=== PATIENT | male | born 1980 | race African-American/Black ===

== ENCOUNTER 2017-01-05 15:57 | Emergency (ER) | payer SELFPAY ==
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
[2017-01-05] MEDS ORDERED: SODIUM CHLORIDE 0.9% 1,000 ML IV STA (16:40)
[2017-01-05] MEDS ORDERED: ONDANSETRON 4 MG/2 ML VIAL IVP STA (16:40)
[2017-01-05] MEDS ORDERED: PANTOPRAZOLE 40 MG/10 ML VIAL IVP STA (16:44)
[2017-01-05] MEDS ORDERED: LORazepam 2 MG/ML SYRINGE IV STA (16:44)
[2017-01-05 16:54] LABS: Basophils % (A) 1 %; CH 30.5; CHCM 35.3; Eosinophils # (A) 0.3 k/uL (0-0.7); Eosinophils % (A) 5 %; HCT 41.9 % (39.0-53.0); HDW 2.83; HGB 14.4 gm/dL (13.0-17.5); Luc # (Auto) 0.26; Luc % (Auto) 4; Lymphocytes # (A) 3.7 k/uL (1.0-4.8); Lymphocytes % (A) 50 %; MCH 29.8 pg (25.0-35.0); MCHC 34.4 g/dL (31.0-37.0); MCV 86.8 fL (80.0-100.0); Monocytes # (A) 0.6 k/uL (0-1.0); Monocytes % (A) 8 %; Neutrophils # (A) 2.4 k/uL (1.3-7.7); Neutrophils % (A) 33 %; RBC 4.83 m/uL (4.30-5.90); RDW 13.2 % (11.5-15.5); WBC 7.3 k/uL (3.8-10.6); WBC (Perox) 6.94
[2017-01-05 17:05] LABS: ALT 33 U/L (21-72); AST 25 U/L (17-59); Alkaline Phosphatase 118 U/L (38-126); Anion Gap 13 mmol/L; Blood Urea Nitrogen 8 mg/dL (9-20); Calcium 9.6 mg/dL (8.4-10.2); Carbon Dioxide 22 mmol/L (22-30); Chloride 104 mmol/L (98-107); Glucose 120 mg/dL (74-99); Magnesium 1.8 mg/dL (1.6-2.3); Non-African American GFR(MDRD) >60 (>60 ml/min/1.73 sqM); Potassium 3.4 mmol/L (3.5-5.1); Sodium 139 mmol/L (137-145); Total Bilirubin 1.1 mg/dL (0.2-1.3)
[2017-01-05 17:07] LABS: INR 1.2 (<1.1); Partial Thromboplastin Time 23.7 sec (22.0-30.0); Prothrombin Time 11.6 sec (9.0-12.0)
[2017-01-05 17:26] LABS: Creatine Kinase 318 U/L (55-170)
[2017-01-05 17:39] LABS: Creatine Kinase MB 1.6 ng/mL (0.0-2.4); Troponin I <0.012 ng/mL (0.000-0.034)
[2017-01-05 18:02] VITALS: BP 133/89; PULSE 88; RESP 18; TEMP 98
== END 2017-01-05 18:02 | disposition home or self-care (01) ==
LOC: EC 15:57
DX: F41.0 Panic disorder [episodic paroxysmal anxiety] (principal); R07.89 Other chest pain; R11.0 Nausea; R68.83 Chills (without fever); F17.200 Nicotine dependence, unspecified, uncomplicated
CPT/HCPCS: 36415; 93005; 85379; 80053; 82550; 82553; 83690; 83735; 84484; 85025; 85610; 85730; 99285; 96374; 96375 ×2; 96361; J2060; J2405; C9113

== ENCOUNTER 2017-05-01 19:54 | Emergency (ER) | payer OTHER ==
[2017-05-01 20:19] VITALS: BP 119/79; PULSE 74; RESP 20; TEMP 99
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
[2017-05-01] MEDS ORDERED: ACET/COD 300 MG/30 MG STARTER PACK 6 TAB BTL PO STA (21:24)
[2017-05-01] MEDS ORDERED: SULFAMETH-TMP DS STARTER PACK 2 TAB BTL PO STA (21:24)
== END 2017-05-01 21:39 | disposition home or self-care (01) ==
LOC: EC 19:54
DX: L02.412 Cutaneous abscess of left axilla (principal); F17.200 Nicotine dependence, unspecified, uncomplicated
CPT/HCPCS: 10060; 87070; 87077; 87186; 87205; 99283

== ENCOUNTER 2017-05-05 09:51 | Emergency (ER) | payer OTHER ==
[2017-05-05 09:56] VITALS: TEMP 98.6
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
[2017-05-05 11:11] VITALS: BP 125/67; PULSE 79; RESP 16
== END 2017-05-05 11:11 | disposition home or self-care (01) ==
LOC: EC 09:51
DX: L02.412 Cutaneous abscess of left axilla (principal); F17.200 Nicotine dependence, unspecified, uncomplicated
CPT/HCPCS: 99282

== ENCOUNTER 2017-12-23 02:12 | Emergency (ER) | payer OTHER ==
[2017-12-23 02:18] VITALS: BP 131/76; PULSE 72; RESP 16; TEMP 98.1
[2017-12-23] MEDS ORDERED: ACET/COD 300 MG/30 MG STARTER PACK 6 TAB BTL PO STA (02:25)
[2017-12-23] MEDS ORDERED: IBUPROFEN 600 MG STARTER PACK 4 TAB BTL PO STA (02:25)
[2017-12-23] MEDS ORDERED: SULFAMETH-TMP DS STARTER PACK 2 TAB BTL PO STA (02:25)
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
== END 2017-12-23 03:20 | disposition home or self-care (01) ==
LOC: EC 02:12
DX: L02.416 Cutaneous abscess of left lower limb (principal); B95.61 Methicillin susceptible Staphylococcus aureus infection as the cause of diseases classified elsewhere; F17.200 Nicotine dependence, unspecified, uncomplicated; Z98.890 Other specified postprocedural states
CPT/HCPCS: 99283

== ENCOUNTER 2020-03-28 20:34 | Emergency (ER) | payer OTHER ==
[2020-03-28 20:58] VITALS: BP 123/72; PULSE 87; RESP 16; TEMP 99
[2020-03-28] MEDS ORDERED: IBUPROFEN 600 MG TAB PO STA (21:24)
--- NOTE | 2020-03-28 21:45 | XR ---
EXAMINATION TYPE: XR tibia fibula LT DATE OF EXAM: 03/28/2020 COMPARISON: NONE HISTORY: Pain TECHNIQUE: 4 views FINDINGS: The tibia and fibula appear intact. I see no fracture nor dislocation. Joint spaces are nor mal. Ankle joint and knee joint appear intact. IMPRESSION: Negative left tibia and fibula exam.
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
== END 2020-03-28 22:12 | disposition home or self-care (01) ==
LOC: EC 20:34
DX: M79.605 Pain in left leg (principal); F17.200 Nicotine dependence, unspecified, uncomplicated
CPT/HCPCS: 99283

== ENCOUNTER 2024-12-03 13:29 | Emergency (ER) | payer OTHER ==
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
[2024-12-03] MEDS: KETOROLAC 15 MG/ML 1 ML VIAL IM STA (14:16)
[2024-12-03] MEDS: MORPHINE SULFATE 4 MG/ML SYRINGE IM STA (14:17)
[2024-12-03] MEDS: CLINDAMYCIN 150 MG CAP PO STA (14:17)
[2024-12-03] MEDS: LIDOCAINE 1%-EPI 1:100,000 20 ML VIAL SQ STA (14:54)
[2024-12-03] MEDS: BENZOCAINE SPRAY 1 EACH MUCOUS MEM STA (14:54)
[2024-12-03 15:33] VITALS: BP 140/92; PULSE 82; RESP 18; TEMP 97.9
== END 2024-12-03 15:33 | disposition home or self-care (01) ==
LOC: EC 13:29
DX: L02.01 Cutaneous abscess of face (principal); K04.7 Periapical abscess without sinus; F17.200 Nicotine dependence, unspecified, uncomplicated
CPT/HCPCS: 99283; 99406; 96372; 41800; J2270; J1885